=== PATIENT | female | born 1975 | race Asian ===

== ENCOUNTER 2018-09-22 14:28 | Emergency (ER) | payer BC, OTHER ==
[~2018-09-22] VITALS: Ht 177.8 cm; Wt 86.2 kg
[~2018-09-22 14:28] MED LIST: BENTYL10 MG ORAL; NKM; ZOFRAN ODT4 MG ORAL
[2018-09-22 15:01] VITALS: BP 162/114
--- NOTE | 2018-09-22 15:13 | Emergency Room Report ---
History of Present Illness General Chief Complaint: Abdominal Pain Source: Patient Present Illness HPI Patient was diagnosed with pneumonia last week at urgent care. She was started on doxycycline. She's taken 4 doses. At 8:00 this morning she started having severe epigastric pain that's intermittent. She coughed up some food stuff but there is no nausea and vomiting. She moved her bowels and was normal this morning. No diarrhea. No fevers and chills aside from the being treated for the pneumonia. The pain is severe, epigastric and nonradiating. She tried taking Mylanta and Tums without help. She tried eating food and this didn't help also. History of gallbladder disease in the past. She hears herself wheezing. They also prescribed an inhaler. Abdominal pain rated 4/10 at this time, epigastric, non-radiating, intermittent. Post gastric sleeve 2 years ago. No headache, dizziness, chest pain, rashes, joint pain, dysuria. LNMP normal. 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 Now: No : 3 Para: 2 Reviewed Nursing Documentation: PMH: Agreed; PSxH: Agreed Nursing Documentation-PMH Hx Hypertension: Yes Review of Systems All Other Systems: negative except mentioned in HPI Physical Exam Vital Signs Date Time Temp Pulse Resp B/P (MAP) Pulse Ox O2 Delivery O2 Flow Rate FiO2 09/22/18 14:46 99.1 96 18 155/108 96 Room Air 09/22/18 15:01 98 Sp02 EP Interpretation: reviewed, normal General Appearance: well appearing, no apparent distress, GCS 15 Head: normocephalic Eyes: bilateral eye normal inspection, bilateral eye PERRL ENT: moist mucus membranes Neck: supple Respiratory: lungs clear, normal breath sounds - cannot hear rales Cardiovascular #1: regular rate, rhythm Cardiovascular #2: 2+ radial (R) Gastrointestinal: normal inspection, normal bowel sounds, no mass, non- distended, no guarding, no rebound, tenderness - reported epigastric Genitourinary: no CVA tenderness Musculoskeletal: back normal, gait/station normal, normal range of motion Neurologic: alert, oriented x3, grossly normal Psychiatric: mood/affect normal Skin: normal inspection, warm/dry Medical Decision Making Diagnostic Impression: Primary Impression: Abdominal pain Qualified Codes: R10.13 - Epigastric pain Additional Impressions: Left lower lobe pneumonia Qualified Codes: J18.1 - Lobar pneumonia, unspecified organism Bronchospasm ER Course Patient presents with epigastric pain that is reported severe. Differential includes pancreatitis, gastritis, reaction to doxycycline, viral syndrome, reaction to pneumonia, gall bladder disease amongst others. Evaluation will be with labs, chest x-ray and abdominal x-ray. The patient will be treated with IV hydration, Pepcid, Zofran and morphine. Labs with normal WBC. Xrays with LLL infiltrate. Abd NSBGP. CMP normal. EKG normal. Improved with treatment, but still with min pain. Morphine repeated. Patient states feels OK to go home. Abd soft. CT not indicated at this time. Discussed treatment plan and observation at home. No surgical emergency at this time. Changing antibiotics as doxycycline might be cause of pain. Patient stable for outpatient observation and treatment. Laboratory Tests Test 09/22/18 15:15 09/22/18 16:05 White Blood Count 9.0 K/UL (4.8-10.8) Red Blood Count 4.72 M/UL (4.20-5.40) Hemoglobin 13.5 G/DL (12.0-16.0) Hematocrit 40.6 % (37.0-47.0) Mean Corpuscular Volume 86 FL (80-99) Mean Corpuscular Hemoglobin 28.6 PG (27.0-31.0) Mean Corpuscular Hemoglobin Concent 33.2 G/DL (32.0-36.0) Red Cell Distribution Width 12.0 % (11.6-14.8) Platelet Count 302 K/UL (150-450) Mean Platelet Volume 7.1 FL (6.5-10.1) Neutrophils (%) (Auto) 72.7 % (45.0-75.0) Lymphocytes (%) (Auto) 18.7 % (20.0-45.0) L Monocytes (%) (Auto) 7.8 % (1.0-10.0) Eosinophils (%) (Auto) 0.4 % (0.0-3.0) Basophils (%) (Auto) 0.4 % (0.0-2.0) Sodium Level 139 MMOL/L (136-145) Potassium Level 3.7 MMOL/L (3.5-5.1) Chloride Level 103 MMOL/L (98-107) Carbon Dioxide Level 25 MMOL/L (21-32) Anion Gap 12 mmol/L (5-15) Blood Urea Nitrogen 11 mg/dL (7-18) Creatinine 0.8 MG/DL (0.55-1.30) Estimate Glomerular Filtration Rate > 60 mL/min (>60) Glucose Level 90 MG/DL (74-106) Calcium Level 9.7 MG/DL (8.5-10.1) Total Bilirubin 0.3 MG/DL (0.2-1.0) Aspartate Amino Transferase (AST) 15 U/L (15-37) Alanine Aminotransferase (ALT) 17 U/L (12-78) Alkaline Phosphatase 74 U/L (46-116) Total Protein 8.7 G/DL (6.4-8.2) H Albumin 3.4 G/DL (3.4-5.0) Globulin 5.3 g/dL Albumin/Globulin Ratio 0.6 (1.0-2.7) L Lipase 88 U/L (73-393) Urine Color Pale yellow Urine Appearance Clear Urine pH 6.5 (4.5-8.0) Urine Specific [place] 1.020 (1.005-1.035) Urine Protein 2+ (NEGATIVE) H Urine Glucose (UA) Negative (NEGATIVE) Urine Ketones Negative (NEGATIVE) Urine Blood Negative (NEGATIVE) Urine Nitrite Negative (NEGATIVE) Urine Bilirubin Negative (NEGATIVE) Urine Urobilinogen Normal MG/DL (0.0-1.0) Urine Leukocyte Esterase 1+ (NEGATIVE) H Urine RBC 0-2 /HPF (0 - 2) Urine WBC 2-4 /HPF (0 - 2) Urine Squamous Epithelial Cells Few /LPF (NONE/OCC) Urine Bacteria Few /HPF (NONE) Urine HCG, Qualitative Negative (NEGATIVE) Rhythm Strip Diag. Results EP Interpretation: yes Rhythm: NSR, no PVC's, no ectopy Chest X-Ray Diagnostic Results Chest X-Ray Diagnostic Results : Chest X-Ray Ordered: Yes # of Views/Limited/Complete: 1 View Indication: Other EP Interpretation: Yes Interpretation: no consolidation, no effusion, no pneumothorax, other - infiltrate seen on abd film Impression: Other Electronically Signed by: Electronically signed by Sathya Ojeda MD Other X-Ray Diagnostic Results Other X-Ray Diagnostic Results : X-Ray ordered: abd # of Views/Limited Vs Complete: 2 View Indication: Pain Interpretation: nonspecific bowel gas, no sbo, other - LLL infiltrate Impression: Other Electronically Signed by: Electronically signed by Sathya Ojeda MD Last Vital Signs Date Time Temp Pulse Resp B/P (MAP) Pulse Ox O2 Delivery O2 Flow Rate FiO2 09/22/18 17:19 97.7 85 22 163/92 98 Room Air 09/22/18 16:55 21 Status: improved Disposition: HOME, SELF-CARE Condition: Improved Scripts Lactulose (LACTULOSE*) 20 Gm/30 Ml Solution 30 ML ORAL BID, #120 ML 0 Refills Prov: Sathya Ojeda MD 09/22/18 Tramadol Hcl* (ULTRAM*) 50 Mg Tablet 50 MG ORAL Q6H PRN for For Pain, #8 TAB 0 Refills Prov: Sathya Ojeda MD 09/22/18 Guaifenesin/Codeine Phos* (ROBITUSSIN AC*) 118 Ml Liquid 5 ML ORAL Q6H PRN for For Cough, #60 ML 0 Refills Prov: Sathya Ojeda MD 09/22/18 Levofloxacin* (LEVAQUIN*) 500 Mg Tablet 500 MG ORAL DAILY, #9 TAB Prov: Sathya Ojeda MD 09/22/18 Sathya Ojeda MD Sep 22, 2018 15:13
[2018-09-22] MEDS ORDERED: Morphine Sulfate 4mg/ml Inj (IV/IM USE ONLY) IVP ONE (15:15)
[2018-09-22 15:43] LABS: BASOPHILS % (AUTO) 0.4 % (0.0-2.0); EOSINOPHILS % (AUTO) 0.4 % (0.0-3.0); HEMATOCRIT 40.6 % (37.0-47.0); HEMOGLOBIN 13.5 G/DL (12.0-16.0); LYMPHOCYTES % (AUTO) 18.7 % (20.0-45.0); MEAN CORPUSCULAR VOLUME 86 FL (80-99); MONOCYTES % (AUTO) 7.8 % (1.0-10.0); NEUTROPHILS % (AUTO) 72.7 % (45.0-75.0); PLATELET COUNT 302 K/UL (150-450); RED BLOOD COUNT 4.72 M/UL (4.20-5.40)
[2018-09-22 15:44] LABS: ANION GAP 12 mmol/L (5-15); BLOOD UREA NITROGEN 11 mg/dL (7-18); CALCIUM 9.7 MG/DL (8.5-10.1); CARBON DIOXIDE 25 MMOL/L (21-32); CHLORIDE 103 MMOL/L (98-107); CREATININE 0.8 MG/DL (0.55-1.30); POTASSIUM 3.7 MMOL/L (3.5-5.1); SODIUM 139 MMOL/L (136-145)
[2018-09-22 15:48] LABS: ALANINE AMINOTRANSFERASE 17 U/L (12-78); ALBUMIN 3.4 G/DL (3.4-5.0); ALBUMIN/GLOBULIN RATIO 0.6 (1.0-2.7); ALKALINE PHOSPHATASE 74 U/L (46-116); ASPARTATE AMINO TRANSFERASE 15 U/L (15-37); BILIRUBIN,TOTAL 0.3 MG/DL (0.2-1.0)
[2018-09-22] MEDS ORDERED: HYZAAR 100-12.1 EACH ORAL (16:16)
[2018-09-22 16:28] LABS: APPEARANCE,URINE CLEAR; BILIRUBIN, URINE NEGATIVE (NEGATIVE); COLOR,URINE PALE YELLOW; GLUCOSE, URINE (UA) NEGATIVE (NEGATIVE); KETONES,URINE NEGATIVE (NEGATIVE); LEUKOCYTE ESTERASE ,URINE 1+ (NEGATIVE); NITRITE,URINE NEGATIVE (NEGATIVE); PH,URINE 6.5 (4.5-8.0); PROTEIN,URINE 2+ (NEGATIVE); UROBILINOGEN,URINE NORMAL MG/DL (0.0-1.0)
--- NOTE | 2018-09-22 16:28 | Diagnostic Imaging Report ---
EXAM: XR Chest, 1 View CLINICAL HISTORY: ABD PAIN TECHNIQUE: Frontal view of the chest. COMPARISON: No relevant prior studies available. FINDINGS: Lungs: Minimal left basilar atelectasis/pneumonitis. Pleural space: Unremarkable. No pneumothorax. Heart: Unremarkable. No cardiomegaly. Mediastinum: Unremarkable. Bones/joints: No acute fracture. IMPRESSION: Minimal left basilar atelectasis/pneumonitis.
--- NOTE | 2018-09-22 16:29 | Diagnostic Imaging Report ---
EXAM: XR Abdomen, 1 View CLINICAL HISTORY: ABD PAIN TECHNIQUE: Frontal supine view of the abdomen/pelvis. COMPARISON: No relevant prior studies available. FINDINGS: Gastrointestinal tract: Nonspecific bowel gas pattern. Bones/joints: No acute fracture. Minimal atelectasis/pneumonitis left lung base. IMPRESSION: Nonspecific bowel gas pattern.
[2018-09-22] MEDS ORDERED: TRAMADOL HCL50 MG ORAL (16:43)
[2018-09-22] MEDS ORDERED: LACTULOSE20 GM/301 ORAL (16:43)
[2018-09-22] MEDS ORDERED: LEVAQUIN500 MG ORAL (16:43)
[2018-09-22] MEDS ORDERED: GUAIFENESIN-CO118 M1 ORAL (16:43)
[2018-09-22] MEDS ORDERED: Ipratropium 0.02% Inh Soln 2.5ml UD HHN ONE (16:45)
[2018-09-22] MEDS ORDERED: Levofloxacin 500mg tab ORAL ONE (16:45)
[2018-09-22] MEDS ORDERED: Albuterol ud Inhalation HHN ONE (16:45)
[2018-09-22 17:19] VITALS: BP 163/92
== END 2018-09-22 17:21 | disposition home or self-care (01) ==
LOC: EMR 15:21
DX: R10.13 Epigastric pain (principal); J18.1 Lobar pneumonia, unspecified organism; J98.01 Acute bronchospasm; I10 Essential (primary) hypertension
CPT/HCPCS: 36415; 71045; 74018; 80053; 81003; 81025; 83690; 85025; 94640; 94664; 96361; 96374; 96375; 99284; J2270; J2405; S0028